=== PATIENT | female | born 1965 | race Caucasian/White ===

== ENCOUNTER 2019-10-01 05:26 | Emergency (ER) | payer BC, OTHER ==
[~2019-10-01] VITALS: Ht 167.6 cm; Wt 60.6 kg
--- NOTE | 2019-10-01 06:25 | NUR ---
pt sitting in room with and daughter at pt side. pt denied si and hi. pt stated "has hx of anxiety and has depression in the past but never this bad"
[2019-10-01 08:47] VITALS: BP 120/71
--- NOTE | 2019-10-01 08:49 | NUR ---
Patient/Caregiver given discharge instructions and they have confirmed that they understand the instructions. Patient ambulatory with steady gait.
[2019-10-10] MEDS ORDERED: CARB200T2 PO (17:31)
[2019-10-10] MEDS ORDERED: QUET25TA7 PO (17:31)
== END 2019-10-01 08:50 | disposition home or self-care (01) ==
LOC: ED 08:30
DX: F32.9 Major depressive disorder, single episode, unspecified (principal)
CPT/HCPCS: 99284

== ENCOUNTER 2019-10-03 18:16 | Emergency (ER) | payer OTHER ==
[~2019-10-03] VITALS: Ht 172.7 cm; Wt 60.0 kg
[2019-10-03 18:20] VITALS: BP 122/74
--- NOTE | 2019-10-03 19:03 | NUR ---
PT'S FAMILY AT BEDSIDE STATED PT HAS BEEN ERRATIC AND DANGEROUS BEHAVIOR DESCRIBED BY AND DAUGHTER PT RUNNING OUT OF HOUSE, DRIVING CAR FAST, POSSIBLE SI/SA. PT ALERT AND AWAKE BUT NONVERBAL.
[2019-10-03] MEDS ORDERED: ACETAMINOPHEN 325 MG TABLET PO ONE (19:30)
[2019-10-03] MEDS ORDERED: ACETAMINOPHEN 325 MG TABLET ONE (19:31)
--- NOTE | 2019-10-03 19:37 | NUR ---
Rene tillman in EDM - 10/03/19 at 2014 by GET PT MEDICATED PER PT TO CT
--- NOTE | 2019-10-03 19:37 | NUR ---
PT TO XRAY
[2019-10-03 19:58] LABS: BASOPHILS # (AUTO) 0.01 x10^3/uL (0-0.1); BASOPHILS % (AUTO) 0 % (0-1); EOSINOPHILS # (AUTO) 0.12 x10^3/uL (0-0.4); EOSINOPHILS % (AUTO) 1 % (1-7); LYMPHOCYTES # (AUTO) 1.98 x10^3/uL (1-3.4); LYMPHOCYTES % (AUTO) 19 % (22-44); MD NO; MEAN CORPUSCULAR HEMOGLOBIN 32.9 pg (27.0-34.8); MEAN CORPUSCULAR HGB CONC 33.1 g/dL (32.4-35.8); MEAN CORPUSCULAR VOLUME 99.3 fL (80-100); MEAN PLATELET VOLUME 8.8 fL (7.4-10.4); MONOCYTES # (AUTO) 0.52 x10^3/uL (0.2-0.8); MONOCYTES % (AUTO) 5 % (2-9); NEUTROPHILS # (AUTO) 7.59 x10^3/uL (1.8-6.8); NEUTROPHILS % (AUTO) 74 % (42-75); PLATELET COUNT 239 x10^3/uL (130-400); RED BLOOD COUNT 4.21 x10^6/uL (3.82-5.3); RED CELL DISTRIBUTION WIDTH 13.4 % (9.6-15.2)
--- NOTE | 2019-10-03 20:05 | NUR ---
STRAIGHT CATH COMPLETED, URINE SAMPLE TAKEN TO LAB
[2019-10-03 20:09] LABS: ALBUMIN 4.1 g/dL (3.4-5.0); ANION GAP 5 mmol/L (5-15); CALCIUM 9.2 mg/dL (8.5-10.1); CHLORIDE 107 mmol/L (98-107); SALICYLATE LEVEL < 1.7 mg/dL (2.8-20.0)
--- NOTE | 2019-10-03 20:14 | NUR ---
PT TO CT
--- NOTE | 2019-10-03 20:15 | NUR ---
TELEPSYCH PAGED AT THIS TIME
[2019-10-03 20:20] LABS: CREATININE 0.91 mg/dL (0.55-1.02); FREE T4 (FREE THYROXINE) 1.12 ng/dL (0.76-1.46)
[2019-10-03 20:36] LABS: AMPHETAMINE SCREEN, URINE Negative (Negative); BARBITURATE SCREEN, URINE Negative (Negative); BENZODIAZEPINE SCREEN, URINE Negative (Negative); CANNABINOID SCREEN, URINE Negative (Negative); COCAINE SCREEN, URINE Negative (Negative); METHADONE SCREEN, URINE Negative (Negative); OPIATE SCREEN, URINE Negative (Negative)
--- NOTE | 2019-10-03 20:39 | NUR ---
PT MOVED FROM ED TR01 TO ED ROOM 40, FAMILY AT HER SIDE, ROOM SECURED, PT'S PERSONAL BELONGING 1 BAG IN SECURITY LOCKER, SITTER AT DOORWAY
--- NOTE | 2019-10-03 21:30 | NUR ---
SOC ON TELEPHONE, UPDATED ON PT STATUS, H/X, VS AND LABS. SOC TO TELE PSYCH CONSULT WITH PT
[2019-10-03] MEDS ORDERED: ESCI5TAB7 PO (21:32)
[2019-10-03] MEDS ORDERED: CHOL400C PO (21:32)
[2019-10-03] MEDS ORDERED: TYLENOL PM (21:32)
--- NOTE | 2019-10-03 21:34 | NUR ---
TELE PSYCH CONSULT IN PROGRESS. SITTER AT DOORWAY FOR MONITORING
--- NOTE | 2019-10-03 22:05 | NUR ---
PT UP TO RR WITH STANDBY ASSIST, STEADY GAIT NOTED, SITTER AT HER SIDE FOR MONITORING
--- NOTE | 2019-10-03 22:16 | NUR ---
HOSPITAL BED ORDER PLACED
[2019-10-03] MEDS ORDERED: QUETIAPINE 25MG TABLET PO SCH (22:30)
--- NOTE | 2019-10-03 22:34 | NUR ---
PROVIDED PT WITH HOSPITAL BED
[2019-10-03] MEDS ORDERED: QUETIAPINE 25MG TABLET ONE (22:37)
--- NOTE | 2019-10-03 22:41 | NUR ---
[facility] REQUESTED PACKET. PACKET FAXED TO [facility]. THEY WILL REVIEW AND CALL US BACK
--- NOTE | 2019-10-03 22:43 | NUR ---
PT C/O RIGHT UPPER CP, STATED " IT'S NOT MY HEART, IT LIKE MY MUSCLE", ERP UPDATED. NERVE SPECIALIST AT BEDSIDE FOR STAT EKG
--- NOTE | 2019-10-03 23:01 | NUR ---
MARIELENA FROM CALLED [employer] AND CONFIRMED THEY HAVE RECEIVED THE PACKET. SHE HAS SENT THE INFO TO DR Connor AND ARE AWAITING HIS ACCEPTANCE OR DENIAL
--- NOTE | 2019-10-03 23:03 | NUR ---
DR Connor HAS ACCEPTED THE PT.
--- NOTE | 2019-10-03 23:05 | NUR ---
PT RESTING CALMLY, PROVIDED PT WITH SNACK AND DRINK, FAMILY AT BEDSIDE, SITTER AT DOORWAY FOR CONTINOUS MONITORING
[2019-10-10] MEDS ORDERED: QUET25TA7 PO (17:31)
[2019-10-10] MEDS ORDERED: CARB200T2 PO (17:31)
== END 2019-10-03 23:52 | disposition home or self-care (01) ==
LOC: ED 19:36
DX: F33.3 Major depressive disorder, recurrent, severe with psychotic symptoms (principal); R63.0 Anorexia; Z73.6 Limitation of activities due to disability
CPT/HCPCS: 36415; 70450; 72220; 80048; 80307; 82040; 84439; 84443; 85025; 93005; 99284